=== PATIENT | male | born 1975 | race Caucasian/White ===

== ENCOUNTER → 2023-01-22 10:24 | Outpatient (BNVA) | payer OTHER, SELFPAY | PROVIDERS: Visit Provider Nurse Practitioner Family | DX: F07.81 Postconcussional syndrome (principal); F43.10 Post-traumatic stress disorder, unspecified; M54.2 Cervicalgia | CPT/HCPCS: 99202 ==

== ENCOUNTER 2023-05-07 13:00 | Outpatient (AMB) | payer OTHER, SELFPAY ==
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
[2023-05-07 13:03] VITALS: BP 160/98; PULSE 98; O2SAT 97; BMI 38.3
== END 2023-05-07 13:56 | disposition home or self-care (01) ==
PROVIDERS: Visit Provider Nurse Practitioner Family
DX: F43.10 Post-traumatic stress disorder, unspecified (principal); F07.81 Postconcussional syndrome; M54.2 Cervicalgia; G47.33 Obstructive sleep apnea (adult) (pediatric)
CPT/HCPCS: 99214

== ENCOUNTER → 2023-05-07 13:00 | Outpatient (BNVA) | payer OTHER, SELFPAY | PROVIDERS: Visit Provider Nurse Practitioner Family | DX: F07.81 Postconcussional syndrome (principal); F43.10 Post-traumatic stress disorder, unspecified; M54.2 Cervicalgia; G47.33 Obstructive sleep apnea (adult) (pediatric); Z99.89 Dependence on other enabling machines and devices | CPT/HCPCS: 99212 ==

== ENCOUNTER → 2023-08-21 11:41 | Outpatient (BNVA) | payer OTHER, SELFPAY | PROVIDERS: Visit Provider Nurse Practitioner Family ==

== ENCOUNTER → 2023-10-08 07:36 | Outpatient (BNVA) | payer OTHER, SELFPAY | PROVIDERS: Visit Provider Nurse Practitioner Family ==

== ENCOUNTER → 2023-12-24 07:36 | Outpatient (BNVA) | payer OTHER, SELFPAY | PROVIDERS: Visit Provider Nurse Practitioner Family ==

== ENCOUNTER 2023-12-24 07:54 | Outpatient (AMB) | payer OTHER, SELFPAY ==
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
== END 2023-12-24 16:21 | disposition home or self-care (01) ==
PROVIDERS: Visit Provider Nurse Practitioner Family
DX: F07.81 Postconcussional syndrome (principal); G44.309 Post-traumatic headache, unspecified, not intractable; M54.2 Cervicalgia; G47.33 Obstructive sleep apnea (adult) (pediatric); F43.10 Post-traumatic stress disorder, unspecified
CPT/HCPCS: 99214

== ENCOUNTER 2024-08-04 07:29 | Outpatient (AMB) | payer OTHER, SELFPAY ==
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
[2024-08-04 07:30] VITALS: BMI 38.3
--- OUTSIDE RECORDS SUMMARY | 2024-08-04 07:31 | XMS_ITS ---
[facility] Name [facility] Organization Unknown History of Medication Use Medication Directions Dispensed Refills Start Date End Date Status gabapentin (NEURONTIN) 600 MG tablet Take 1 tablet (600 mg total) by mouth 3 (three) times a day. 4 active clonazePAM (KlonoPIN) 0.5 MG tablet 4 active Emgality 120 MG/ML injection 4 active gabapentin (NEURONTIN) 300 MG capsule 4 active oxyCODONE (ROXICODONE) 5 MG immediate release tablet Take 1 tablet every 4 hours by oral route as needed. 4 active divalproex (DEPAKOTE) [address] 4 active divalproex er (DEPAKOTE ER) 500 MG 24 hr tablet TAKE 1 TABLET BY MOUTH EVERYDAY AT BEDTIME 4 [address] [facility] [address]etamin[address] Ex [address] 500 MG tablet 4 active gabapentin (NEURONTIN) 600 MG tablet 4 active ibuprofen (MOTRIN) 800 mg tablet 4 active Ubrelvy 100 MG tablet 4 active lisinopril (PRINIVIL,ZeSTRIL) 30 MG tablet Take 1 tablet (30 mg total) by mouth daily. 4 active cloNIDine (CATAPRES) 0.1 MG tablet TAKE 1/2 TABLET BY MOUTH TWICE A DAY NEEDED AGITATION 4 active hydrOXYzine HCl (ATARAX) 10 MG tablet TAKE 4 TABLETS (40 MG TOTAL) BY MOUTH NIGHTLY. 3 aborted bupivacaine preservative free (MARCAINE) 0.5 % injection 2 mL 3 completed ibuprofen (MOTRIN) 200 MG tablet Take 1 tablet (200 mg total) by mouth 4 times daily (every 6 hours) as needed for mild pain. 2 aborted lisinopril (PRINIVIL,ZeSTRIL) 20 MG tablet Take 1 tablet (20 mg total) by mouth daily. 2 active benzonatate (TESSALON) 200 MG capsule Take 1 capsule (200 mg total) by mouth 3 (three) times a day as needed for cough. 2 aborted fluticasone (VERAMYST) 27.5 MCG/SPRAY nasal spray 2 sprays into each nostril. 2 aborted prazosin (MINIPRESS) 2 MG capsule 3 active fluticasone (FloNASE) 50 mcg/spray nasal spray 1 spray into each nostril daily. 2 active traZODone (DESYREL) 50 MG tablet Take 1 tablet (50 mg total) by mouth nightly. 3 aborted hydrOXYzine HCl (ATARAX) 50 MG tablet TAKE 1 TABLET BY MOUTH EVERY DAY AT NIGHT 3 aborted risperiDONE (RisperDAL) 0.25 MG tablet Take 1 tablet (0.25 mg total) by mouth 2 (two) times a day. 3 active prazosin (MINIPRESS) 2 MG capsule 3 active fluticasone (FloNASE) 50 mcg/spray nasal spray 1 spray into each nostril daily. 2 active methylPREDNISolone acetate (DEPO-Medrol) 40 mg/mL injection 40 mg 3 completed butalbital-acetaminoph en-caffeine (FioriCET, ESGIC) 50-325-40 mg tablet TAKE 1 TABLET ORALLY EVERY 4 HOURS NEEDED FOR PAIN FOR UP TO 28 DAYS 2 aborted bupivacaine preservative free (MARCAINE) 0.5 % injection 2.5 mL 3 completed albuterol (PROVENTIL HFA; VENTOLIN HFA) 108 (90 Base) MCG/ACT inhaler Inhale 2 puffs 4 times daily (every 6 hours) as needed for wheezing. 2 aborted venlafaxine (EFFEXOR-XR) 37.5 MG 24 hr capsule Take 1 capsule (37.5 mg total) by mouth daily. 2 aborted lidocaine (XYLOCAINE) 2 % injection 2.5 mL 2.5 mL, Intramuscular, Once, On Nidia 02/19/23 at 1000, For 1 dose 3 completed hydrOXYzine HCl (ATARAX) 50 MG tablet Take 1 tablet (50 mg total) by mouth nightly. 3 aborted divalproex (DEPAKOTE) [address] Take 1 tablet (500 mg total) by mouth 2 (two) times a day. 3 active venlafaxine (EFFEXOR-XR) 150 MG 24 hr capsule TAKE 1 CAPSULE BY MOUTH DAILY FOR 360 DAYS. 3 active citalopram (CeleXA) 10 MG tablet Take 1 tablet (10 mg total) by mouth every morning. 4 active traZODone (DESYREL) 50 MG tablet TAKE 2 TABLETS BY MOUTH NIGHTLY 3 active hydrOXYzine HCl (ATARAX) 10 MG tablet TAKE 1 TABLET (10 MG TOTAL) BY MOUTH NIGHTLY. FOR 2-3 NIGHTS, THEN INCREASE TO 20MG AND CONTINUE 2 aborted amoxicillin-clavulanat e (AUGMENTIN) 875-125 MG per tablet Take 1 tablet by mouth 2 (two) times a day. 2 aborted hydrOXYzine HCl (ATARAX) 10 MG tablet 3 aborted cyclobenzaprine (FLEXERIL) 10 MG tablet cyclobenzaprine 10 mg tablet 2 active lidocaine (XYLOCAINE) 2 % injection 2 mL 2 mL, Intramuscular, Once, On Thu06/03/23 at 1430, For 1 dose 3 completed Problems Problem Status Onset Date Problem Type Date of Resolution Source Cervical radiculopathy active EncounterDiagnosisAct H[facility] Acute diverticulitis of intestine active 2023-01-08 ProblemAct [facility] Class 2 obesity active 2023-05-11 ProblemAct HH CCT Neuroforaminal stenosis of cervical spine active EncounterDiagnosisAct CCT Diverticulitis of colon with perforation active 2023-01-08 ProblemAct [facility]CT
--- OUTSIDE RECORDS SUMMARY | 2024-08-04 07:31 | XMS_ITS | Data Portability ---
Author Organization [facility] Address [address] [place] [address] Assessment Encounter Date Assessment Date Assessment LastModified by Organization Details LastModified Time 05/05/2018 05/05/2018 MRI of the lumbar spine scanned into DICOM demonstrates a L4-5 disc bulge leading to right sided lateral recess stenosis. Mr. De Guzman' right leg she is consistent with a right L5 radiculopathy is lateral recess narrowing at L4-5. As he has failed to improve with nonoperative care including injections and physical therapy, we discussed the option of a right L4-5 partial discectomy. The risks and benefits of the surgery were described in detail including the risk of bleeding, infection, numbness, weakness, continued pain and reherniation. I explained that she ever reherniation he may require additional surgery. I also explained that given that he has had pain for 2 years, he may continue to have nerve pain following surgery. We also discussed the typical course of recovery. He wishes to proceed with surgery and this will be scheduled for him. [email or web address] Not available 05/05/2018 16:11:09 06/30/2018 06/30/2018 Mr. De Guzman is improving. He will continue to advance his level activity and followup with me in 4 weeks. Given the very physical nature of his work, I do not recommend that he return until I have seen him in 4 weeks. Not available 06/30/2018 14:47:01 Plan of Treatment Reminders Order Date Submit Date Provider Last Modified By Organization Details Last Modified Time Details Appointments None recorded. Lab None recorded. Referral None recorded. Procedures None recorded. Surgeries lumbar discectomy (SURG) 2017 018 [email or web address] Not available 8 09:56:28 Imaging MRI, knee, w/o contrast 2018 019 [email or web address] [facility] ([facility]), [address], [place], [address], 9 10:27:21 Medication Orders None recorded. Patient TargetsNo targets recorded. Patient Instructions Encounter Date Encounter Id Patient Instructions Last Modified By Organization Details Last Modified Time 07/19/2018 [id number] Mr. De Guzman is recovering nicely from his discectomy. He has been referred for physical therapy. He would like to return to work. He has been return to work at light duty as of July 24. He will follow up in 8 weeks. [email or web address] Not available 07/21/2018 05:56:25 05/17/2019 [id number] He presents toda for 2 problems. He continues to report pain with running and sit ups in his lower back. He is status post right L4-L5 discectomy on 06/15/[address] Weinstein. He is unable to run more than 1/4 mile and cannot tolerate sit ups without severe pain. We obtained x-rays today which did not reveal any fracture or bony abnormalities. There are no signs of infection. He does not have any neurologic deficits. I suspect that this is mechanical in nature. I do not think he is a candidate to participate in the training program for his job. I recommended a work hardening program to work on getting back to running and sit ups. We will start this program and he will follow-up in 4 weeks. At that point we will update his work restrictions. In the meantime, he can continue participating in his other duties at work. He also reports a left knee injury that was a work-related injury. The work comp case was closed. The injury occurred 4 months ago. He did well with physical therapy and yufd-nld-ysdltij options. He felt something shift in his knee and his pain returned. We obtained x-rays today. There is no obvious osteoarthritis or fracture. He has an effusion and is tender over the lateral joint line. He has tried doing the exercises that he learned from therapy. He is not making any progress. At this point I would recommend an MRI for more information. He may have a lateral meniscus tear. Once we have the results we can discuss treatment options. He agrees with the plan. Not available 05/17/2019 18:19:33 Reason for Referral None Reported. Results Created Date Observation Date Name Description Value Unit Range Abnormal Flag Note LastModifiedBy Organization Detail LastModifiedTime 05/05/20 18 03/18/2018 MRI, lumba r spine , w/o contr ast No observ ation record ed. [email or web address] Not Available 07/2018 14:57:34 06/15/20 18 06/15/2018 XR, entir e spine , 1 view RESPON SIBLE INTERP RETER: Edin rouse M.D. 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 TECHNI QUE: Latera l fluoro spot view of the lower lumbar spine using the operat ing room C-arm COMPAR SYED: None FINDIN GS: There is a curved instru ment at the level of the pedicl e of L4. IMPRES JULIO: Instru ment at the level of L4. Dictat ed: 2017 1:02 PM Report ID: [id number] Report signed in tea leaf reader al system at 2017 13:02 Report ed By: Edin rouse M.D. (JULITO) Signed By: Edin rouse M.D. (JULITO) [email or web address] Radiology (Imaging) [address] [facility], [place], [address], 06/15/2018 13:54:36 06/14/20 19 05/17/2019 XR, knee, 3 view RESPON SIBLE INTERP RETER: Brandon slater M.D. EXAMIN ATION: XR KNEE 3 VW LEFT CLINIC AL INDICA TION: Left knee pain TECHNI QUE: Three views of the left knee. COMPAR SYED: None FINDIN GS: The bone as well minera lized. There is no eviden ce of destru ctive bone lesion s or fractu re. The medial and latera l compar tment of the left knee are preser marialuisa. The left patell ofemor al joint is normal . Standi ng view of the right knee demons trates preser marialuisa medial and latera l compar tments . There is no eviden ce of a joint effusi on. IMPRES JULIO: Normal left knee radiog raphs. Dictat ed: 2018 3:11 PM Report ID: [id number] Report signed in tea leaf reader al system at 019 15:11 Report ed By: Brandon slater M.D. (MARED ) Signed By: Brandon slater M.D. (MARED ) [email or web address] Radiology (Imaging) [address] [place], [address], 06/14/2019 10:30:51 06/14/20 19 05/17/2019 XR, foot, 3 or more view RESPON SIBLE INTERP RETER: Brandon slater M.D. EXAMIN ATION: XR FOOT 3+ VW LEFT CLINIC AL INDICA TION: Left foot pain TECHNI QUE: Three views of the left foot. COMPAR SYED: None FINDIN GS: Bone as well minera lized. There is no eviden ce of fractu re or destru ctive bone lesion s. No prolif erativ e or erosiv e arthro randy is seen. Dorsal osteop hytes are noted on the navicu lar bone. There is a tiny calcan eal spur at the origin of the planta r fascia . Dystro phic calcif icatio n is seen within the distal Achill is tendon at its insert ion on the oven attendant ior calcan eus. IMPRES JULIO: No fractu re or destru ctive bone lesion s left foot. Dorsal osteop hytes on the navicu lar bone. Calcan eal spur. Dystro phic calcif icatio n in the distal left Achill is tendon likely relate d to old trauma . Dictat ed: 2018 3:13 PM Report ID: [id number] Report signed in tea leaf reader al system at 019 15:13 Report ed By: Brandon slater M.D. (MARED ) Signed By: Brandon slater M.D. ([facility] ) [email or web address] Radiology (Imaging) [address] [place], [address], 06/14/2019 10:30:51 06/14/20 19 05/17/2019 XR, thora colum bar spine , 2 or 3 view RESPON ALISON ALVES RETER: Brandon slater M.D. EXAMIN ATION: XR LUMBAR SPINE 2-3 VW AP LAT CLINIC AL INDICA TION: 44-yea r-old male with lower back pain. Histor y of prior surger y TECHNI QUE: Two views of the lumbar spine. COMPAR SYED: Prior study dated 2017 FINDIN GS: The lumbar verteb ral bodies demons trate normal alignm ent. There is no destru ctive bone lesion s or acute fractu re. Mild degene rative facet change s are noted at L5-S1. The interv ertebr al disc spaces are preser marialuisa. Parave rtebra l soft tissue s are normal . IMPRES JULIO: Mild degene rative facet diseas e L5-S1. No acute fractu re. Preser marialuisa interv ertebr al disc spaces . Dictat ed: 2018 3:14 PM Report ID: [id number] Report signed in tea leaf reader al system at 019 15:14 Report ed By: Brandon slater M.D. (MAR ) Signed By: Brandon slater M.D. ([facility] ) Radiology (Imaging) [address] [facility], [place], [address], 06/14/2019 10:30:52 06/16/20 19 06/15/2019 MRI, knee, w/o contr ast [facility] [place] [facility] Access ion Number : [id number] Patien t Name : Florentino De Guzman Record Number : [id number] Date of : 1974 Date of Exam : 2018 Referr ing Physic verenice : LEANA HAM rts [address] [facility] [address] [place] [address] Exam : MR - KNEE (C-) CPT 43506 - LEFT Room Descri ption : Heard Siem Espr 2 1.5 Techni que : Ax PDFsat , Sag PD, Sag T2 FS,Cor PD FS, Cor T1 Final Report HISTOR Y Latera l menisc al tear. Latera l pain for 4 months , ever since injury . FINDIN GS MRI left knee. Small effusi on. Very tiny and slende r poplit eal cyst. EXTENS OR MECHAN ISM No signif icant extens or tendon pathol ogy. Suspec t border line latera l patell ar sublux ation. Medial patell ar retina culum and medial patell ofemor al ligame nt: Intact . Latera l patell ar retina culum: Intact . Small medial patell ar plica. ARTICU LAR CARTIL AGE AND BONES Promin ent fissur e is seen in the medial aspect of the latera l patell ar articu lar cartil age with additi onal areas of chondr al irregu larity , fissur ing, and edema seen elsewh ere in the patell ar cartil age. Mild fissur ing of the latera l trochl ear articu lar cartil age also noted. Mild chondr al edema is noted involv ing the weight bearin g medial femora l condyl e articu lar cartil age. Tiny 7 mm hetero geneou sly T2 hyperi ntense focus with puncta te foci of dimini shed T2 signal (serie s 3 image 9, series 7 image 14) is seen in the randell medial distal femora l metaph ysis. This likely repres ents a tiny enchon droma given its appear ance. No eviden ce for bone marrow edema or other marrow pathol ogy. CRUCIA TE LIGAME NTS PCL: Intact . ACL: Intact . COLLAT ERAL LIGAME NTS MCL: Intact . LCL: Intact . POPLIT EUS TENDON Intact . Poplit eofibu lar ligame nt: Intact . Superi or and inferi or fascic les oven attendant ior horn latera l menisc us: Intact . PROXIM AL TIBIOF IBULAR JOINT Some fluid noted in the proxim al tibiof ibular joint recess es althou gh a small multil obulat ed gangli on cyst may be presen t as well. MENISC I MEDIAL : Myxoid degene ration . No defini te eviden ce for tear. LATERA L: Intact . IMPRES JULIO * Somewh at promin ent patell ofemor al chondr omalac ia. Mild chondr al edema/ chondr omalac ia medial femora l condyl e articu lar cartil age. * Presum able 7 mm enchon droma in the distal femur. Recomm end radiog raphic correl ation. * Suspec t border line latera l patell ar sublux ation. * No eviden ce for menisc al or ligame ntous injury . * Small multil obulat ed gangli on cyst versus joint recess fluid noted adjace nt to the proxim al tibiof ibular joint. * Tiny poplit eal cyst. ----- PHYSIC VERENICE : LIN CASAS MD (Signa ture on file) [address] [facility] ([facility]) [address] [place], [address], 06/18/2019 09:55:51 06/16/20 19 06/15/2019 MRI, knee, w/o contr ast No observ ation record ed. [email or web address] [place] [address] [facility] [address] [place], [address], 06/18/2019 09:55:51 Result Notes None recorded. Problems No Known Problems Procedures Surgical History Date Name Laterality Status Provider Name and Address Organization Details Recorded Time 8 Back Surgery completed Xiomara Jeanette [facility] 06/30/2018 14:25:[address] [facility] Lumbar Epidural Injection completed CRYS COOPER MD [address] [place] [address],[address], [place], [address], [facility] 05/24/2018 14:04:46 Tonsillectomy/ Adenoidectomy completed Latricia Walker [facility] 05/05/2018 15:46:59 Imaging Results Imaging Date Name Status LastModified by Organization Details LastModified Time 03/18/2018 MRI, lumbar spine, w/o contrast completed [email or web address] Information not available 05/05/2018 14:57:34 06/15/2018 XR, entire spine, 1 view completed [email or web address] Radiology (Imaging) [address] [place], [address], 06/15/2018 13:54:36 05/17/2019 XR, knee, 3 view completed [address] Radiology (Imaging) [address] [place] [address], [address], 06/14/2019 10:30:51 05/17/2019 XR, foot, 3 or more view completed [address] Radiology (Imaging) [address] [place] [address], [address], 06/14/2019 10:30:51 05/17/2019 XR, thoracolumbar spine, 2 or 3 view completed [address] Radiology (Imaging) [address] [place] [address], [address], 06/14/2019 10:30:52 06/15/2019 MRI, knee, w/o contrast completed [address] [facility] [address] [place], [address], 06/18/2019 09:55:51 06/15/2019 MRI, knee, w/o contrast completed [address] [facility] [address] [place] [address], [address], 06/18/2019 09:55:51 Procedure Notes None recorded. Medical Equipment None Reported. Allergies No known drug allergies Medications Name Sig Start Date Stop Date Status Note LastModified by Organization Details LastModified Time cyclobenzapri ne 10 mg tablet active Not Available Not Available Not Available neomycin-poly myxin-hydroco rt 3.5 mg/mL-10,000 unit/mL-1 % ear solution active Not Available Not Available Not Available prednisone 10 mg tablet 05/05 completed Not Available Not Available Not Available ibuprofen 800 mg tablet active Not Available Not Available No t Available benzonatate 200 mg capsule 05/17 completed Not Available Not Available Not Available ranitidine 300 mg tablet 05/05 completed Not Available Not Available Not Available gabapentin 300 mg capsule active Not Available Not Available Not Available amoxicillin 875 mg-potassium clavulanate 125 mg tablet 05/17 completed Not Available Not Available Not Available oxycodone 5 mg tablet Take 1 tablet every 4 hours by oral route as needed. active Not Available Not Available No t Available escitalopram 10 mg tablet 05/05 completed Not Available Not Available Not Available Flonase active Not Available Not Avail able Not Available Tylenol active Not Available Not Avail able Not Available Cristina active Not Available Not Avail able Not Available ProAir HFA 90 mcg/actuation aerosol inhaler 05/17 completed Not Available Not Available Not Available Vitals Date Recorded Body height Body mass index (BMI) Body weight Body temperature Provider Name and Address Organization Details Last Updated DateTime 05/05/2018 185.42 cm 36.3 kg/m2 959716.9 g 97.8 [degF] Latricia Walker [facility] 05/05/2018 15:45:36 Date Recorded Body height Body mass index (BMI) Body weight Body temperature Provider Name and Address Organization Details Last Updated DateTime 06/30/2018 185.42 cm 36.3 kg/m2 576228.9 g 99.2 [degF] Xiomara Reid [facility] 06/30/2018 14:25:17 Date Recorded Body height Body mass index (BMI) Body weight Body temperature Provider Name and Address Organization Details Last Updated DateTime 07/19/2018 185.42 cm 36.3 kg/m2 172094.9 g 97.7 [degF] Obie Vasquez [facility] 07/19/2018 13:16:32 Date Recorded Body height Body mass index (BMI) Body weight Provider Name and Address Organization Details Last Updated DateTime 05/17/2019 185.42 cm 36.3 kg/m2 474027.9 g Nicky Patel [facility] 05/17/2019 13:44:39 Date Recorded Body temperature Provider Name a nd Address Organization Details Last Updated DateTime 05/17/2019 99.1 [degF] Yarely Chand [facility] 05/17/2019 14:04:55 Social History Question Answer Notes LastModified by Organizat ion Details LastModified Time Tobacco Smoking Status Never Smoker Latricia Walker [facility] 05/05/2018 15:46:48 What Is Your Level Of Alcohol Consumption? Moderate [email or web address] Information not available 05/05/2018 What Was The Date Of Your Most Recent Tobacco Screening? 07/19/2018 Information n ot available 03/16/2019 Sex: Unknown Functional Status None recorded. Mental Status None recorded. Family History Relationship Description Onset Age of this Age Resolved Age Notes LastModified by Organization Details LastModified Time Father No current problems or disability Not available 05/05 15:46:43 Mother No current problems or disability Not available 05/05 15:46:43 Medical History Condition Response Coronary Artery Disease N Dyslipidemia N Gout N Artificial Joints N Thyroid Problems N Lung Disease N Depression N Pacemaker N Anemia N Back Pain N Hearing Impairment N Anesthesia Complications N Heart Attack ([place]) N Headaches/Migraines N Deep Vein Thrombosis N Anxiety Disorder N Diabetes N Bleeding Disorder N Arthritis N Seizures/Epilepsy N Cardiac Stent N Blood Clot N Tuberculosis N AIDS/HIV N Inflammatory Bowel Disease N Acid Reflux (GERD) N Cancer N Stroke N Substance Abuse N Peripheral Vascular Disease N Asthma/COPD N Wears Glasses/Contacts N Hepatitis N Heart Disease N Organ Transplant N Rheumatoid Arthritis N Pulmonary Embolism N Fibromyalgia N Hypertension N Stomach Ulcer N Osteoporosis N Kidney Disease N Past Encounters Encounter ID Performer Location Encounter Start Date Encounter Closed Date Diagnosis/Indication Diagnosis SNOMED-CT Code Diagnosis ICD10 Code [id number] ANNE WEINSTEIN MD [address], [place] [address] [place] [phone] 05/05/2018 14:43:23 05/05/2018 16:43:29 Herniation of lumbar intervertebral disc with sciatica 0044870754 02858 M51.16 [id number] CRYS COOPER MD [address],[place] [address] [place] [address] 05/24/2018 13:32:31 05/24/2018 14:24:55 Lumbar radiculopathy [id number] M54.16 [id number] ANNE WEINSTEIN MD [address],[place] [address] [place] [phone] 06/30/2018 13:43:33 06/30/2018 14:47:26 [id number] YANELY LANGLEY [address],[place] [address] [place] [address] 07/19/2018 13:11:17 07/22/2018 09:27:56 Aftercare [id number] Z47.89 [id number] YANELY FONTAINE [place] [address] [facility],[place] [address] [place] [address] 05/17/2019 13:32:08 05/19/2019 14:33:09 Postoperative care 922878728 Z48.89 Tear of la teral meniscus of knee 942514657 S83.281A Health Concerns Section Related Observation LastModified by Organization Detai ls LastModified Time None Recorded Concern Status LastModified by Organization Details LastModified Time None Recorded Advance Directives Directive None Recorded Payers Encounter Date Sequence Insurance Name Policy Number Policy [place] Covered Member ID [place] Member ID Guarantor Name 05/05/2018 1 [employer] (PPO) [id number] Florentino Marina De Guzman [id number] Florentino Gege 05/24/2018 1 [employer] ([employer]) [id number] Florentino Gray Gege [id number] Florentino Gege 06/30/2018 [facility] [id number] Florentino Marina De Guzman [id number] Florentino Gege 07/19/2018 1 [facility] - [facility]ENIOR [facility] (PPO) [id number] Florentino Gray Gege [id number] Florentino Christiansonars 05/17/2019 1 [facility] - [facility]ENIOR [facility] ([facility]) [id number] Florentino Gray Gege [id number] Florentino De Guzman Notes Date Note Type Note Provider Name and Address Organization Details Recorded Time 05/05/2018 text/html Two years ago he developed severe right-sided low back pain and leg pain after lifting his daughter. This initially lasted approximately 3 weeks. He then developed worsening lateral hip and thigh pain. Since that time the pain has been severe. It is made worse with standing and walking. The pain can radiate down to the ankle. His leg can feel a weak at times. He has had lumbar injections as well as physical therapy which did not provide him with significant relief. He is currently on light duty. He works at the [employer]. He had transient left leg pain but this has resolved. ANNE WEINSTEIN MD [address] [place] [address],[address], [place], [address], [facility] 05/05/2018 16:49:42 06/30/2018 text/html He is now 2 week s out from his surgery. He reports decreasing back and leg pain. He's had no fevers or chills. ANNE WEINSTEIN MD [address] [facility],[address], [place], [address], [facility] 06/30/2018 14:47:09 07/19/2018 text/html Mr. De Guzman is 6 weeks s/p microdiscectomy at L4-5. Overall he is doing well. He has minor lower back pain with movement. He states the leg is tight with a SLR. His hip pain has resolved. He does not have weakness or paresthesias. He can now stand and walk for prolonged periods of time, YANELY LANGLEY [address] [facility],[address], [place], [address], [facility] 07/21/2018 05:56:47 05/17/2019 text/html Back PainReporte d bypatient.Notes:Mr. De Guzman is s/p microdiscectomy at L4-5 on 06/15/18. Overall he is doing well. He has no pain with walking. He does report significant lower back pain and radiating pain down the right lower extremity that occurs with situps and running. He does not have weakness or paresthesias. He can now stand and walk for prolonged periods of time. He has completed physical therapy and has been training for a fitness test. He states that he can only run about one quarter of a mile on a track or treadmill until he has significant pain. He can not run on asphalt surfaces. He denies neurologic symptoms. He denies bowel or bladder dysfunction. He denies any new trauma.Knee PainReported bypatient.Notes:Patie nt secondary complaint of left knee pain. This was previously a work-related injury. The injury occurred 4 months ago. He was evaluated at a hospital in [place] and diagnosed with a sprain. He was treated with ice, rest, anti-inflammatories, and physical therapy. He states that he did recover and return to work. However, recently his pain returned. His pain is over the lateral and posterior aspect of his knee. He reports clicking and buckling. He denies neurologic symptoms. He has tried resuming his exercises but they are too painful. He is here today to discuss further options. YANELY FONTAINE [address] [facility],[address], [place], [address], [facility] 05/17/2019 18:20:18
== END 2024-08-04 10:24 | disposition home or self-care (01) ==
PROVIDERS: Visit Provider Nurse Practitioner Family
DX: F07.81 Postconcussional syndrome (principal); G44.329 Chronic post-traumatic headache, not intractable; M54.2 Cervicalgia; G47.33 Obstructive sleep apnea (adult) (pediatric); F43.10 Post-traumatic stress disorder, unspecified
CPT/HCPCS: 99214

== ENCOUNTER → 2024-08-04 07:29 | Outpatient (BNVA) | payer OTHER, SELFPAY | PROVIDERS: Visit Provider Nurse Practitioner Family ==

== ENCOUNTER 2024-10-27 07:34 | Outpatient (AMB) | payer OTHER, SELFPAY ==
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
--- OUTSIDE RECORDS SUMMARY | 2024-10-27 07:38 | XMS_ITS | Encounter Summary ---
Author Organization [facility] Address [address] [place] [address] Care Team Providers Care Orchardist Name Role Phone Boni Ladd Primary Care Provider [phone] Reason for Visit * Reason Comments Other Pre procedure cleara nce Encounter Details Date Type Department Care Team (Late st Contact Info) Description 10/11/2024 Telephone [id number] [address] [phone] Saurabh Shar Leandro, DO [address] [address] Other (Pre procedure clearance ) Social History Tobacco Use Types Packs/Day Years Used Date Smoking Tobacco: Never Smokeless Tobacco: Never Alcohol Use Standard Drinks/Week Comments Not Currently 0 (1 standard drink = 0.6 oz pur e alcohol) Sex and Gender Information Value Date Recorded Sex Assigned at Male 12/24/2022 9:27 AM EDT Gender Identity Male 12/24/2022 9:27 AM EDT Sexual Orientation Heterosexual (straight) 12/24 9:27 AM EDT documented as of this encounter Miscellaneous Notes * Telephone Encounter - Nino Mahoney MA - 10/12/2024 1:13 PM EST Encounter closed. documented in this encounter Plan of Treatment Upcoming Encounters Date Type Department Care Team (Late st Contact Info) Description 11/10/2024 10:45 AM EDT Office Visit [id number] [address] [phone] Renae Zambrano PA-C [address] [address] documented as of this encounter Visit Diagnoses Not on filedocumented in this encounter Care Teams Orchardist Relationship Specialty Start Date End Date Boni Ladd PA [address] [place] [phone] PCP - General 06/20/22 documented as of this encounter
--- OUTSIDE RECORDS SUMMARY | 2024-10-27 07:38 | XMS_ITS | Encounter Summary ---
Author Organization [facility] Address [address] [place] [address] Care Team Providers Care Tumor Registrar Name Role Phone Boni Ladd Primary Care Provider Encounter Details Date Type Department Care Team (Late st Contact Info) Description 09/28/2024 Telephone [facility] Neurology [address] [phone] Rhona Alonzo MD [address] [place] [phone] Social History Tobacco Use Types Packs/Day Years [...] encounter Miscellaneous Notes * Telephone Encounter - Rhona Alonzo MD - 09/28/2024 10:20 AM EST I returned the patient's call. The FELICITA has worn off and the increase in pain is triggering his mental health issues with increased PTSD and anxiety. He is waiting to hear back from Dr. Wiley's office if they can continue to treathim. Otherwise he meets with 2 talk therapists 2x/week and psychiatrist as well for medications. I advised him to let me know if Dr. Wiley can't continue to treat him for pain management then I'll refer him to Dr. David in [place]. He'll let me know by Thursday about pain management. All questionswere answered. Rhona Alonzo MD documented in this encounter Plan of Treatment Upcoming Encounters Date Type Department Care Team (Late st Contact Info) Description 11/10/2024 10:45 AM EDT Office Visit [id number] [address] [phone] Renae Zambrano PA-C [address] [address] documented as of this encounter Visit Diagnoses Not on filedocumented in this encounter Care Teams Tumor Registrar Relationship Specialty Start Date End Date Boni Ladd PA [address] [place] [address] PCP - General 06/20/22 documented as of this encounter
--- OUTSIDE RECORDS SUMMARY | 2024-10-27 07:38 | XMS_ITS | Encounter Summary ---
Author Organization [facility] Address [address] [place] [address] Care Team Providers Care Security Installation Sales Technician Name Role Phone Boni Ladd Primary Care Provider Encounter Details Date Type Department Care Team (Late st Contact Info) Description 10/06/2024 Scanned Document [facility] Neurology Sports [place] [address] [phone] Rhona Alonzo MD [address] [address] Social History Tobacco Use Types Packs/Day Years [...] AM EDT documented as of this encounter Plan of Treatment Upcoming Encounters Date Type Department Care Team (Late st Contact Info) Description 11/10/2024 10:45 AM EDT Office Visit [id number] [address] [phone] Renae Zambrano PA-C [address] [address] documented as of this encounter Visit Diagnoses Not on filedocumented in this encounter Care Teams Security Installation Sales Technician Relationship Specialty Start Date End Date Boni Ladd PA [address] [place] [id number] PCP - General 06/20/22 documented as of this encounter
--- OUTSIDE RECORDS SUMMARY | 2024-10-27 07:38 | XMS_ITS | Patient Health Record ---
Author Organization Nadeen Peter MD Address [address] [phone] REASON FOR REFERRAL No Information PLAN OF TREATMENT No Information
--- OUTSIDE RECORDS SUMMARY | 2024-10-27 07:38 | XMS_ITS | Encounter Summary ---
Author Organization [facility] Address [address] [place] [address] Care Team Providers Care Block Machine Operator Name Role Phone Boni Ladd Primary Care Provider [phone] Encounter Details Date Type Department Care Team (Late st Contact Info) Description 10/11/2024 Scanned Document [facility] Neurology Sports [place] [address] [phone] Rhona Alonzo MD [address] [address] Social History Tobacco Use Types Packs/Day Years [...] Visit MG PAIN MGMT [id number] [address] [phone] Renae Zambrano PA-C [address] [address] documented as of this encounter Visit Diagnoses Not on filedocumented in this encounter Care Teams Block Machine Operator Relationship Specialty Start Date End Date Boni Ladd PA [address] [place] [id number] PCP - General 06/20/22 documented as of this encounter
--- OUTSIDE RECORDS SUMMARY | 2024-10-27 07:38 | XMS_ITS | Encounter Summary ---
Author Organization [facility] Address [address] [place] [address] Care Team Providers Care Roofing Contractor Name Role Phone Boni Ladd Primary Care Provider [phone] Encounter Details Date Type Department Care Team (Late st Contact Info) Description 10/06/2024 Scanned Document [facility] Neurology Sports [place] [address] [phone] Rhona Alonzo MD [address] [address] Social History Tobacco Use Types Packs/Day Years [...] Office Visit MG PAIN MGMT [id number] [address] [phone] Renae Zambrano PA-C [address] [address] documented as of this encounter Visit Diagnoses Not on filedocumented in this encounter Care Teams Roofing Contractor Relationship Specialty Start Date End Date Boni Ladd PA [address] [place] [phone] PCP - General 06/20/22 documented as of this encounter
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
--- OUTSIDE RECORDS SUMMARY | 2024-10-27 07:38 | XMS_ITS | Encounter Summary ---
Author Organization [facility] Address [address] [place] [address] Care Team Providers Care Tuyere Fitter Name Role Phone Boni Ladd Primary Care Provider Encounter Details Date Type Department Care Team (Late st Contact Info) Description 10/06/2024 Scanned Document [facility] Neurology [place] [address] [phone] Rhona Alonzo MD [address] [address] Social History Tobacco Use Types Packs/Day Years [...] Office Visit MG PAIN MGMT [id number] [address] [phone] Renae Zambrano PA-C [address] [address] documented as of this encounter Visit Diagnoses Not on filedocumented in this encounter Care Teams Tuyere Fitter Relationship Specialty Start Date End Date Boni Ladd PA [address] [place] [address] PCP - General 06/20/22 documented as of this encounter
--- OUTSIDE RECORDS SUMMARY | 2024-10-27 07:38 | XMS_ITS | Encounter Summary ---
Author Organization [facility] Address [address] [place] [address] Care Team Providers Care Laundry Operator Finishing Name Role Phone Boni Ladd Primary Care Provider Encounter Details Date Type Department Care Team (Late st Contact Info) Description 10/11/2024 Scanned Document [facility] Neurology Sports [place] [address] [phone] Rhona Alonzo MD [address] [address] Social History Tobacco Use Types Packs/Day Years [...] Office Visit MG PAIN MGMT [id number] [address] [phone] Renae Zambrano PA-C [address] [address] documented as of this encounter Visit Diagnoses Not on filedocumented in this encounter Care Teams Laundry Operator Finishing Relationship Specialty Start Date End Date Boni Ladd PA [address] [place] [address] PCP - General 06/20/22 documented as of this encounter
--- OUTSIDE RECORDS SUMMARY | 2024-10-27 07:38 | XMS_ITS | Encounter Summary ---
Author Organization [facility] Address [address] [place] [address] Care Team Providers Care Adolescent Counselor Name Role Phone Boni Ladd Primary Care Provider Encounter Details Date Type Department Care Team (Latest Contact Info) Description 10/13/2024 Travel Social History Tobacco Use Types Packs/Day Years [...] Visit MG PAIN MGMT [id number] [address] [phone] Renae Zambrano PA-C [address] [address] documented as of this encounter Visit Diagnoses Not on filedocumented in this encounter Care Teams Adolescent Counselor Relationship Specialty Start Date End Date Boni Ladd PA [address] [place] [address] PCP - General 06/20/22 documented as of this encounter
--- OUTSIDE RECORDS SUMMARY | 2024-10-27 07:39 | XMS_ITS | Clinical Summary ---
Author Organization [facility] Address [address] [place] [address] Care Team Providers Care Measurement Analyst Name Role Phone Boni Ladd Primary Care Provider [phone] Allergies No known active allergies Medications Medication Sig Dispensed Refills Start Date End Date Status fluticasone (FloNASE) 50 mcg/spray nasal spray 1 spray into each nostril daily. Active cyclobenzaprine (FLEXERIL) 10 MG tablet cyclobenzaprine 10 mg tablet Active venlafaxine (EFFEXOR-XR) 150 MG 24 hr capsule TAKE 1 CAPSULE BY MOUTH DAILY FOR 360 DAYS. 11/27/2022 Active risperiDONE (RisperDAL) 0.25 MG tablet Take 1 tablet (0.25 mg total) by mouth 2 (two) times a day. Active traZODone (DESYREL) 50 MG tabletIndications: Difficulty sleeping TAKE 2 TABLETS BY MOUTH NIGHTLY 180 tablet 1 03/05/2023 Active prazosin (MINIPRESS) 2 MG capsule 03/24/2023 Active citalopram (CeleXA) 10 MG tablet Take 1 tablet (10 mg total) by mouth every morning. 10/02/2023 Active Ubrelvy 100 MG tablet 11/18/2023 Active lisinopril (PRINIVIL,ZeSTRIL) 30 MG tablet Take 1 tablet (30 mg total) by mouth daily. 11/18/2023 Active ibuprofen (MOTRIN) 800 mg tablet Active gabapentin (NEURONTIN) 600 MG tablet Take 1 tablet (600 mg total) by mouth 3 (three) times a day. 12/11/2023 Active cloNIDine (CATAPRES) 0.1 MG tablet TAKE 1/2 TABLET BY MOUTH TWICE A DAY NEEDED AGITATION 09/30/2023 Active [facility]aminophen [facility] 500 MG tablet 09/17/2023 Active divalproex (DEPAKOTE) 500 MG tablet 12/27/2023 Active gabapentin (NEURONTIN) 300 MG capsule Active Emgality 120 MG/ML injection 12/29/2023 Active oxyCODONE (ROXICODONE) 5 MG immediate release tablet Take 1 tablet every 4 hours by oral route as needed. Active clonazePAM (KlonoPIN) 0.5 MG tablet 01/25/2024 Active Hospital, Clinic, or Other Facility Administered Medication Ordered Dose Route Frequency Start Date End Date Status methylPREDNISolone acetate (DEPO-Medrol) 80 mg/mL injection 80 mgIndications:Cervical radiculopathy,Cervical spinal stenosis,Cervicalgia 80 mg IX Once 10/13/2024 10/13/19 Ended Active Problems Problem Noted Date Diagnosed Date Class 2 obesity 05/11/2023 05/11/2023 Acute diverticulitis of intestine 01/08/2023 05/11/2023 Diverticulitis of colon with perforation 023 05/11/2023 Encounters Date Type Department Care Team Description 10/13/2024 1:30 PM EST Procedure visit MG PAIN MGMT [id number] [address] [phone] Shar Wiley, Cervical radiculopathy (Primary Dx); Cervical spinal stenosis; Cervicalgia 10/13/2024 Travel 10/11/2024 Telephone MG PAIN MGMT [id number] [address] [phone] Shar Wiley, Other (Pre procedure clearance ) 10/11/2024 Scanned Document [facility] Neurology [address] [phone] Rhona Alonzo MD 10/11/2024 Scanned Document [facility] Neurology [address] [phone] Rhona Alonzo MD 10/06/2024 Scanned Document [facility] Neurology [address] [place] [address] Rhona Alonzo MD 10/06/2024 Scanned Document [facility] Neurology [address] [place] [address], [place] [address] Rhona Alonzo MD 10/06/2024 Scanned Document [facility] Neurology [address] [place] [address], [place] [address] Rhona Alonzo MD 09/28/2024 Telephone [facility] Neurology [address] [place] [address], [place] [address] Rhona Alonzo MD from Last 3 Months Family History Medical History Relation Name Comments Other Father agent orange Hypertension Mother Cancer Paternal Grandmother Relation Name Status Comments Father Mother Paternal Grandmother Social History Tobacco Use Types Packs/Day Years Used Date Smoking Tobacco: Never Smokeless Tobacco: Never Alcohol Use Standard Drinks/Week Comments Not Currently 0 (1 standard drink = 0.6 oz pur e alcohol) Sex and Gender Information Value Date Recorded Sex Assigned at Male 12/24/2022 9:27 AM EDT Gender Identity Male 12/24/2022 9:27 AM EDT Sexual Orientation Heterosexual (straight) 12/24 9:27 AM EDT Last Filed Vital Signs Vital Sign Reading Time Taken Comments Blood Pressure 142/93 10/13/2024 1:46 PM EST Pulse 100 10/13/2024 1:46 PM EST Temperature 36.9 ??C (98.5 ??F) 10/13/2024 1:18 PM ES T Respiratory Rate 18 05/06/2024 11:40 AM EDT Oxygen Saturation 97% 10/13/2024 1:46 PM EST Inhaled Oxygen Concentration - - Weight 127 kg (280 lb) 05/06/2024 11:07 AM EDT Height 185.4 cm (6' 1 ) 05/06/2024 11:07 AM EDT Body Mass Index 36.94 05/06/2024 11:07 AM EDT Plan of Treatment Upcoming Encounters Date Type Department Care Team (Late st Contact Info) Description 11/10/2024 10:45 AM EDT Office Visit MG PAIN MGMT [id number] [address] [place] [address] Renae Zambrano PA-C [address] [place] [address] Health Maintenance Due Date Last Done Comments Hepatitis C Virus Screening 1977 HIV Screening 1990 DTaP/Tdap/Td Vaccines (1 - Tdap) 01/02/1996 Hepatitis B Vaccines (1 of 3 - 19+ 3-dose series) 01/02/1996 Colonoscopy 2022 Influenza Vaccine 03/24/2024 COVID-19 Vaccine (1 - 2023-2 5 season) 2024 Pneumococcal Vaccine: Pediat savannah (0-5 Years) and At-Risk Patients (6 to 49 Years) Aged Out No longer eligible b ased on patient's age to complete this topic Procedures Procedure Name Priority Date/Time Associated Diagnosis Comments CERVICAL EPIDURAL Routine 10/13/2024 1:4 1 PM EST Cervical radiculopathy from Last 3 Months Results * CERVICAL EPIDURAL (10/13/2024 1:41 PM [...] Shar Wiley DO AMB ORDERABLE PERFOR LISA from Last 3 Months Advance Directives Documents on File Type Date Recorded Patient Community Health Education Coordinator Expl anation Advance Directive-Scan 04/02/2023 Medic al necessity form Care Teams Measurement Analyst Relationship Specialty Start Date End Date Boni Ladd PA [address] [place] [address] PCP - General 06/20/22
--- OUTSIDE RECORDS SUMMARY | 2024-10-27 07:39 | XMS_ITS | Encounter Summary ---
Author Organization [facility] Address [address] [place] [address] Care Team Providers Care Coal Unloader Name Role Phone Boni Ladd Primary Care Provider [phone] Reason for Visit * Reason Comments Medication Refill Encounter Details Date Type Department Care Team (Late Contact Info) Description 03/18/2023 Refill [facility] Neurology [address] [phone] Rhona Alonzo MD [address] [place] [phone] Difficulty sleeping Social History Tobacco Use Types Packs/Day Years Used Date Smoking Tobacco: Never Smokeless Tobacco: Never Alcohol Use Standard Drinks/Week Comments Not Currently 0 (1 standard drink = 0.6 oz pur e alcohol) Sex and Gender Information Value Date Recorded Sex Assigned at Male 12/24/2022 9:27 AM EDT Gender Identity Male 12/24/2022 9:27 AM EDT Sexual Orientation Heterosexual (straight) 12/24 9:27 AM EDT COVID-19 Exposure Response Date Recorded In the last 10 days, have yo u been in contact with someone who was confirmed or suspected to have Coronavirus/COVID-19? No / Unsure 02/19/2023 8:58 AM EDT documented as of this encounter Plan of Treatment Upcoming Encounters Date Type Department Care Team (Late Contact Info) Description 11/10/2024 10:45 AM EDT Office Visit MG PAIN MGMT [id number] 65 [facility] [address] [place] [address] Renae Zambrano PA-C 65 [facility] [address] [place] [address] documented as of this encounter Visit Diagnoses Diagnosis Difficulty sleeping Unspecified sleep disturbance documented in this encounter Care Teams Coal Unloader Relationship Specialty Start Date End Date Boni Ladd PA [address] [place] [address] PCP - General 06/20/22 documented as of this encounter
--- OUTSIDE RECORDS SUMMARY | 2024-10-27 07:39 | XMS_ITS | Encounter Summary ---
Author Organization [facility] Address [address] [place] [address] Care Team Providers Care Personnel Research Scientist Name Role Phone Pcp, No Primary Care Provider Boni Matias Primary Care Provider Encounter Details Date Type Department Care Team (Latest Contact Info) Description 09/03/2020 Lab Requisition [facility] [address] Through [address] [place] [address] [address] [place] [address] Boni Herrera PA-C [address] [place] [address] Encounter for laboratory testing for COVID-19 virus Social History Tobacco Use Types Packs/Day Years Used Date Smoking Tobacco: Never Smokeless Tobacco: Never Sex and Gender Information Value Date Recorded Sex Assigned at Male 12/24/2022 9:27 AM EDT Gender Identity Male 12/24/2022 9:27 AM EDT Sexual Orientation Heterosexual (straight) 12/24 9:27 AM EDT COVID-19 Exposure Response Date Recorded In the last month, have you been in contact with someone who was confirmed or suspected to have Coronavirus / COVID-19? Yes 09/03/2020 11:58 AM EST documented as of this encounter Plan of Treatment Upcoming Encounters Date Type Department Care Team (Late st Contact Info) Description 11/10/2024 10:45 AM EDT Office Visit MG PAIN [facility]MT [id number] 65 [facility] [address] [place] [phone] Renae Zambrano PA-C 65 [facility] [address] [place] [address] documented as of this encounter Procedures Procedure Name Priority Date/Time Associated Diagnosis Comments COVID-19 RT-PCR ([facility]) Routine 09/03/2020 12:13 PM EST Encounter for laboratory testing for COVID-19 virus [ICD-10-CM] documented in this encounter Results * COVID-19 RT-PCR ([facility]) (09/03/2020 12:13 PM EST) COVID-19 RT-PCR SARS-COV-2 NOT DETECTED Not Detected 09/04/2020 11:33 AM EST [facility] Comment: ADDITIONAL INFORMATION [facility] COVID-19 RT-PCR Assay is Real-Time Reverse Tank Car Mechanic Polymerase Chain Reaction (executive office manager-PCR) for the in vitro qualitative detection of three SARS-Cov-2 target sequences unique to the coronavirus disease 2019 (COVID-19). This is an Emergency Use Authorization (EUA) in vitro diagnostic (IVD) test that has been modified to include the Smart Destinations automated liquid handler. Its analytical performance characteristics have been determined by the doula and verified by [facility] in a manner consistent with CLIA requirements. This test may be used for clinical purposes and should not be regarded as purely investigational or for research use only. This laboratory is certified under the Clinical Laboratory Improvement Amendments of 1988 (CLIA) as qualified to perform high complexity clinical testing. Reference interval for this testing is SARS-CoV-2 Not Detected. Fact sheets for this Emergency Use Authorization assay can be found at the following links: For Healthcare Providers: https://www.fda.gov/media/885690/download For Patients: https://www.fda.gov/media/406422/download TEST LIMITATIONS Positive results are indicative of the presence of SARS-CoV-2 RNA; clinical correlation with patient history and other diagnostic information is necessary to determine patient infection status. Positive results do not rule out bacterial infection or co-infection with other viruses. The agent detected may not be the definite cause of disease. Negative results do not exclude SARS-CoV-2 infection and should not be used as the sole basis for patient management decisions. Negative results must be combined with clinical observations, patient history, and epidemiological information. Improper sample collection, transport or storage may impede the ability of the assay to detect target sequences. Inconclusive specimens are not repeated, and recollection and submission of a new sample is recommended. The performance of the TaqPath COVID-19 Combo Kit was established using nasopharyngeal swab, nasopharyngeal aspirate, and bronchoalveolar lavage (BAL) specimens. The limit of detection for the assay was determined to be 0.75copies/uL in the specimens of nasopharyngeal swab. Other specimen types may be need for further validation before testing on this system. For further details refer to the [employer] TaqPath COVID-19 Combo Kit EUA submission (https://www.Simple Admit.gov/media/754895/download). ----- Test performed by [facility], [address] [place] [address] CLIA# [id number] ?[id number] ? José Miguel Thompson M.D., Ph.D., [facility], Clinical Lumber Planer Microbiology Nasopharyngeal swab / Unknown 09/03/2020 12:13 PM EST 09/03/2020 12:14 PM EST Narrative [facility] - 09/04/2020 11:33 AM EST Performed at [facility], [address] [place] [address], [place] Lic 0695, CLIA [id number] Boni Herrera PA-C MICROBIOLOGY - NERAL ORDERABLES [address] [place] [address] documented in this encounter Visit Diagnoses Diagnosis Encounter for laboratory testing for COVID-19 virus documented in this encounter Care Teams Personnel Research Scientist Relationship Specialty Start Date End Date Pcp, No PCP - General General Medicine 06/07/18 06/19/22 Boni Ladd PA [address] [place] [address] PCP - General 06/20/22 documented as of this encounter
--- OUTSIDE RECORDS SUMMARY | 2024-10-27 07:39 | XMS_ITS | Encounter Summary ---
Author Organization [facility] Address [address] [place] [address] Care Team Providers Care Geospatial Systems Integrator Name Role Phone Boni Ladd Primary Care Provider [phone] Reason for Visit * Reason Comments Medication Refill Encounter Details Date Type Department Care Team (Late Contact Info) Description 01/29/2023 Refill [facility] Neurology [address] [address] Rhona Alonzo MD [address] [place] [id number] Difficulty sleeping Social History Tobacco Use Types [...] suspected to have Coronavirus/COVID-19? No / Unsure 01/07/2023 9:28 AM EDT documented as of this encounter Plan of Treatment Upcoming Encounters Date Type Department Care Team (Late Contact Info) Description 11/10/2024 10:45 AM EDT Office Visit MG PAIN MGMT [id number] 65 [facility] [address] [place] [address] Renae Zambrano PA-C 65 [facility] [address] [place] [address] documented as of this encounter Visit Diagnoses Diagnosis Difficulty sleeping Unspecified sleep disturbance documented in this encounter Care Teams Geospatial Systems Integrator Relationship Specialty Start Date End Date Boni Ladd PA [address] [place] [address] PCP - General 06/20/22 documented as of this encounter
--- OUTSIDE RECORDS SUMMARY | 2024-10-27 07:39 | XMS_ITS | Encounter Summary ---
Author Organization [facility] Address [address] [place] [address] Care Team Providers Care Razor Sharpener Name Role Phone Boni Ladd Primary Care Provider Encounter Details Date Type Department Care Team (Late st Contact Info) Description 04/07/2023 Scanned Document [facility] Neurology [place] [address] [phone] Rhona Alonzo MD [address] [address] Social History Tobacco Use Types Packs/Day Years [...] Office Visit [facility] PAIN [facility]MT [id number] [address] [phone] Renae Zambrano PA-C [address] [address] documented as of this encounter Visit Diagnoses Not on filedocumented in this encounter Care Teams Razor Sharpener Relationship Specialty Start Date End Date Boni Ladd PA [address] [place] [address] PCP - General 06/20/22 documented as of this encounter
--- OUTSIDE RECORDS SUMMARY | 2024-10-27 07:39 | XMS_ITS | Clinical Summary ---
Author Organization [facility] Address [address] [place] [address] Care Team Providers Care Export Packer Name Role Phone Unavailable Primary Care Provider Unavailabl e Allergies No known active allergies Medications Medication Sig Dispensed Refills Start Date End Date Status acetaminophen (TYLENOL) 650 MG CR tablet Take 1,300 mg by mouth. 0 03/01/2020 Active albuterol (ACCUNEB) 0.63 MG/3ML nebulizer soln (NICU) Inhale 0.63 mg into the lungs. 0 Active benzonatate (TESSALON) 200 MG capsule Take 1 capsule (200 mg total) by mouth 3 (three) times a day as needed. 0 09/08/2018 Active gabapentin (NEURONTIN) 300 MG capsule gabapentin 300 mg capsule 0 Active [id number] C, OTIC, (CORTISPORIN) 1 % SOLN otic solution zrdlfato-mwgvadlpg-k ydrocort 3.5 mg/mL-10,000 unit/mL-1 % ear solution 0 Active oxyCODONE (ROXICODONE) 5 MG immediate release tablet oxycodone 5 mg tablet 0 Active Active Problems Problem Noted Date Diagnosed Date Diverticulitis of colon with perforation 023 Acute diverticulitis of intestine 01/08/2023 Social History Tobacco Use Types Packs/Day Years Used Date Smoking Tobacco: Never Smokeless Tobacco: Never Tobacco Cessation:Counseling Given: Not Answered Sex and Gender Information Value Date Recorded Sex Assigned at Not on file Gender Identity Not on file Sexual Orientation Not on file Job Start Date Occupation Industry Not on file Not on file Not on file Last Filed Vital Signs Vital Sign Reading Time Taken Comments Blood Pressure 125/83 01/11/2023 7:05 AM EDT Pulse 76 01/11/2023 7:05 AM EDT Temperature 36.9 ??C (98.4 ??F) 01/11/2023 7:05 AM ED T Respiratory Rate 16 01/11/2023 7:05 AM EDT Oxygen Saturation 98% 01/11/2023 7:05 AM EDT Inhaled Oxygen Concentration - - Weight 131.5 kg (290 lb) 01/08/2023 7:39 PM EDT Height 185.4 cm (6' 1 ) 01/08/2023 7:39 PM EDT Body Mass Index 38.26 01/08/2023 7:39 PM EDT Plan of Treatment Health Maintenance Due Date Last Done Comments Hepatitis B Vaccines (1 of 3 - 3-dose series) 1977 Hepatitis C Screening 1977 COVID-19 Vaccine (#1) 1977 Depression Screening 1989 BMI Counseling 1995 Preventative Health Evaluation 1995 Colon Cancer Screening (Colonoscopy) 2022 Influenza Vaccine (#1) 2024 DTap / Tdap / Td (3 - Td or Tdap) 06/10/2032 06/10/2022, 01/11/2013, 11/12/2006 Pneumococcal Vaccine Aged Out No long er eligible based on patient's age to complete this topic RSV Ped < 20 months Aged Out No longe r eligible based on patient's age to complete this topic Advance Directives For more information, please contact: [phone] Latest Code Status on File Code Status Date Activated Date Inactivated Comments Full Code 01/08/2023 11:18 PM 01/11/2023 4:48 PM
--- OUTSIDE RECORDS SUMMARY | 2024-10-27 07:39 | XMS_ITS | Encounter Summary ---
Author Organization [facility] Address [address] [place] [address] Care Team Providers Care Director Blood Bank Name Role Phone Boni Ladd Primary Care Provider [phone] Reason for Visit * Reason Comments Medication Refill Encounter Details Date Type Department Care Team (Late Contact Info) Description 03/16/2023 Refill [facility] Neurology [address] [phone] Rhona Alonzo MD [address] [place] [phone] Difficulty sleeping Social History Tobacco Use Types [...] Office Visit MG PAIN MGMT [id number] 65 [facility] [address] [place] [address] Renae Zambrano PA-C 65 [facility] [address] [place] [address] documented as of this encounter Visit Diagnoses Diagnosis Difficulty sleeping Unspecified sleep disturbance documented in this encounter Care Teams Director Blood Bank Relationship Specialty Start Date End Date Boni Ladd PA [address] [place] [phone] PCP - General 06/20/22 documented as of this encounter
--- OUTSIDE RECORDS SUMMARY | 2024-10-27 07:39 | XMS_ITS | Data Portability ---
Author Organization [facility] Address [address] [place] [address] Assessment Encounter Date Assessment Date Assessment LastModified [...] and this will be scheduled for him. [email or web address] Not available 05/05/2018 16:11:09 06/30/2018 06/30/2018 Mr. De Guzman is improving. He will continue to advance his level activity and followup with me in 4 weeks. Given the very physical nature of his work, I do not recommend that he return until I have seen him in 4 weeks. [email or web address] Not available 06/30/2018 14:47:01 Plan of Treatment Reminders Order Date Submit Date Provider Last Modified By Organization Details Last Modified Time Details Appointments None recorded. Lab None recorded. Referral None recorded. Procedures None recorded. Surgeries lumbar discectomy (SURG) 2017 018 [email or web address] Not available 8 09:56:28 Imaging MRI, knee, w/o contrast 2018 019 [email or web address] [facility] ([facility]), [address], [place], [address], 9 10:27:21 Medication Orders None recorded. Patient TargetsNo targets recorded. Patient Instructions Encounter Date Encounter Id Patient Instructions Last Modified By Organization Details Last Modified Time 07/19/2018 [id number] Mr. De Guzman is recovering nicely from his discectomy. He has been referred for physical therapy. He would like to return to work. He has been return to work at light duty as of July 24. He will follow up in 8 weeks. [email or web address] Not available 07/21/2018 05:56:25 05/17/2019 [id number] He presents toda for 2 problems. He [...] He did well with physical therapy and [id number] options. He felt something shift in his [...] treatment options. He agrees with the plan. [email or web address] Not available 05/17/2019 18:19:33 Reason for Referral [...] Dictat ed: 2017 1:02 PM Report ID: [id number] Report signed in supervisor shed workers al system at 2017 13:02 Report ed By: Edin rouse M.D. (JULITO) Signed By: Edin rouse M.D. (JULITO) [email or web address] [facility]) [address] [facility], [place], [address], 06/15/2018 13:54:36 06/14/20 19 05/17/2019 XR, knee, [...] Dictat ed: 2018 3:11 PM Report ID: [id number] Report signed in supervisor shed workers al system at 019 15:11 Report ed By: Brandon slater M.D. (MARED ) Signed By: Brandon slater M.D. (MARED ) [email or web address] [facility] (Im[facility]) [address] [place], [address], 06/14/2019 10:30:51 06/14/20 19 05/17/2019 XR, foot, [...] tendon at its insert ion on the power superintendent ior calcan eus. IMPRES JULIO: No fractu re or destru ctive bone lesion s left foot. Dorsal osteop hytes on the navicu lar bone. Calcan eal spur. Dystro phic calcif icatio n in the distal left Achill is tendon likely relate d to old trauma . Dictat ed: 2018 3:13 PM Report ID: [id number] Report signed in supervisor shed workers al system at 019 15:13 Report ed By: Brandon slater M.D. (MARED ) Signed By: Brandon slater M.D. ([facility] ) [email or web address] [facility] (Im[facility]) [address] [place], [address], 06/14/2019 10:30:51 06/14/20 19 05/17/2019 XR, thora [...] Dictat ed: 2018 3:14 PM Report ID: [id number] Report signed in supervisor shed workers al system at 019 15:14 Report ed By: Brandon slater M.D. (MAR ) Signed By: Brandon slater M.D. ([facility] ) [facility]) [address] [facility], [place], [address], 06/14/2019 10:30:52 06/16/20 19 06/15/2019 MRI, knee, w/o contr ast [facility] [place] [facility] Access ion Number : [id number] Patien t Name : Florentino De Guzman Record Number : [id number] Date of : 1974 Date of Exam : 2018 Referr ing Physic verenice : LEANA HAM rts [address] [facility] [address] [place] [address] Exam : MR - KNEE (C-) CPT 65902 - LEFT Room Descri ption : Socorro Siem Espr 2 1.5 Techni que : [...] Superi or and inferi or fascic les power superintendent ior horn latera l menisc us: Intact [...] CASAS MD (Signa ture on file) [address] [facility] ([facility]) [address] [place], [address], 06/18/2019 09:55:51 06/16/20 19 06/15/2019 MRI, knee, w/o contr ast No observ ation record ed. [email or web address] [place] [address] [facility] At [facility] [address] [place], [address], 06/18/2019 09:55:51 Result Notes None recorded. Problems No Known Problems Procedures Surgical History Date Name Laterality Status Provider Name and Address Organization Details Recorded Time 8 Back Surgery completed Xiomara Jeanette [facility] 06/30/2018 14:25:[address] [facility] Lumbar Epidural Injection completed CRYS COOPER MD [address] [place] [address],[address], [place], [address], [facility] 05/24/2018 14:04:46 Tonsillectomy/ Adenoidectomy completed Latricia Walker [facility] 05/05/2018 15:46:59 Imaging Results Imaging Date Name Status LastModified by Organization Details LastModified Time 03/18/2018 MRI, lumbar spine, w/o contrast completed [email or web address] Information not available 05/05/2018 14:57:34 06/15/2018 XR, entire spine, 1 view completed [email or web address] [facility] (Im[facility]) [address] [place], [address], 06/15/2018 13:54:36 05/17/2019 XR, knee, 3 view completed [address] Radiology (Imaging) [address] [place] [address], [address], 06/14/2019 10:30:51 05/17/2019 XR, foot, 3 or more view completed [address] Rad[facility] (Imaging) [address] [place] [address], [address], 06/14/2019 10:30:51 05/17/2019 XR, thoracolumbar spine, 2 or [address] view [address] [facility] (Imaging) [address] [place] [address], [address], 06/14/2019 10:30:52 06/15/2019 MRI, knee, w/o contrast completed [address] [facility] ([facility]) [address] [place], [address], 06/18/2019 09:55:51 06/15/2019 MRI, knee, w/o contrast completed [address] [facility] - [facility]ri [address] [place] [address], [address], 06/18/2019 09:55:51 Procedure Notes None recorded. Medical [...] Updated DateTime 05/05/2018 185.42 cm 36.3 kg/m2 909354.9 g 97.8 [degF] Latricia Walker [facility] 05/05/2018 15:45:36 Date Recorded Pain severity - 0-10 verbal numeric rating [Score] - Reported Provider Name and Address Organization Details Last Updated DateTime 05/05/2018 10 Not Available formerly [facility] 8 05:59:33 Date Recorded Body height Body mass index (BMI) Body weight Body temperature Provider Name and Address Organization Details Last Updated DateTime 06/30/2018 185.42 cm 36.3 kg/m2 818375.9 g 99.2 [degF] Xiomara Reid [facility] 06/30/2018 14:25:17 Date Recorded Pain severity - 0-10 verbal numeric rating [Score] - Reported Provider Name and Address Organization Details Last Updated DateTime 06/30/2018 6 Not Available formerly [facility] 8 05:59:43 Date Recorded Body height Body mass index (BMI) Body weight Body temperature Provider Name and Address Organization Details Last Updated DateTime 07/19/2018 185.42 cm 36.3 kg/m2 588094.9 g 97.7 [degF] Obie Vasquez [facility] 07/19/2018 13:16:32 Date Recorded Pain severity - 0-10 verbal numeric rating [Score] - Reported Provider Name and Address Organization Details Last Updated DateTime 07/19/2018 6 Not Available formerly [facility] 8 05:36:28 Date Recorded Body height Body mass index (BMI) Body weight Pain severity - 0-10 verbal numeric rating [Score] - Reported Provider Name and Address Organization Details Last Updated DateTime 05/17/2019 185.42 cm 36.3 kg/m2 284280.9 g 5 Nicky Patel [facility] 05/17/2019 13:44:43 Date Recorded Body temperature Provider Name a nd Address Organization Details Last Updated DateTime 05/17/2019 99.1 [degF] Yarely Chand [facility] 05/17/2019 14:04:55 Social History Question Answer Notes LastModified by Organizat ion Details LastModified Time Tobacco Smoking Status Never Smoker Latricia Walker whit [facility] 05/05/2018 15:46:48 What Is Your Level Of Alcohol Consumption? Moderate [email or web address] Information not available 05/05/2018 What Was The Date Of Your Most Recent Tobacco Screening? 07/19/2018 Information n ot available 03/16/2019 Sex: Unknown Functional Status None recorded. Mental Status None recorded. Family History Relationship Description Onset Age of this Age Resolved Age Notes LastModified by Organization Details LastModified Time Father No current problems or disability [email or web address] Not available 05/05 15:46:43 Mother No current problems or disability [email or web address] Not available 05/05 15:46:43 Medical History Condition Response Coronary Artery Disease N Gout N Lung Disease N Depression N Pacemaker N Hearing Impairment N Anesthesia Complications N Headaches/Migraines N Deep Vein Thrombosis N Anxiety Disorder N Arthritis N Blood Clot N Acid Reflux (GERD) N Cancer N Stroke N Organ Transplant N Rheumatoid Arthritis N Fibromyalgia N Kidney Disease N Dyslipidemia N Artificial Joints N Thyroid Problems N Anemia N Back Pain N Heart Attack ([place]) N Diabetes N Bleeding Disorder N Seizures/Epilepsy N Cardiac Stent N Tuberculosis N AIDS/HIV N Inflammatory Bowel Disease N Substance Abuse N Peripheral Vascular Disease N Asthma/COPD N Wears Glasses/Contacts N Hepatitis N Heart Disease N Pulmonary Embolism N Hypertension N Stomach Ulcer N Osteoporosis N Past Encounters Encounter ID Performer Location Encounter Start Date Encounter Closed Date Diagnosis/Indication Diagnosis SNOMED-CT Code Diagnosis ICD10 Code Diagnosis Note [id number] ANNE WEINSTEIN MD [address] [address] 05/05/2018 14:43:23 05/05/2018 16:43:29 Herniation of lumbar intervertebral disc with sciatica 8623824588 32904 M51.16 [id number] CRYS COOPER MD [address] [place] [address] 05/24/2018 13:32:31 05/24/2018 14:24:55 Lumbar radiculopathy [id number] M54.16 [id number] ANNE WEINSTEIN MD [address] [place] [address] 06/30/2018 13:43:33 06/30/2018 14:47:26 [id number] YANELY LANGLEY [address] [place] [address] 07/19/2018 13:11:17 07/22/2018 09:27:56 Aftercare [id number] Z47.89 Mr. De Guzman is recovering nicely from his discectomy . He has been referred for physical therapy. He would like to return to work. He has been return to work at light duty as of July 24. He will follow up in 8 weeks.Mr. De Guzman is recovering nicely from his discectomy . He has been referred for physical therapy. He would like to return to work. He has been return to work at light duty as of July 24. He will follow up in 8 weeks. [id number] YANELY FONTAINE [employer] [address] [facility],[address] [place] [address] 05/17/2019 13:32:08 05/19/2019 14:33:09 Postoperative care [id number] Z48.89 Tear of la teral meniscus of knee [id number] S83.281A Health Concerns Section Related Observation LastModified by Organization Detai ls LastModified Time None Recorded Concern Status LastModified by Organization Details LastModified Time None Recorded Advance Directives Directive None Recorded Payers Encounter Date Sequence Insurance Name Policy Number Policy [place] Covered Member ID [place] Member ID Guarantor Name 05/05/2018 1 [employer] (PP[employer]) [id number] Florentino De Guzman [id number] Florentino De Guzman 05/24/2018 1 [employer]) [id number] Florentino De Guzman [id number] Florentino De Guzman 06/30/2018 1 [employer] (PP[employer]) [id number] Florentino De Guzman [id number] Florentino De Guzman 07/19/2018 1 [facility] (O) [id number] Florentino De Guzman [id number] Florentino De Guzman 05/17/2019 1 [facility] ([facility] [id number] Florentino De Guzman [id number] Florentino De Guzman Notes Date Note Type [...] on light duty. He works at the [employer]. He had transient left leg pain but this has resolved. ANNE WEINSTEIN MD [address] [place] [address],[address], [address], [facility] 05/05/2018 16:49:42 06/30/2018 text/html He is now 2 week s out from his surgery. He reports decreasing back and leg pain. He's had no fevers or chills. ANNE WEINSTEIN MD [address] [place] [address],[address] [facility], [place], [address], [facility] 06/30/2018 14:47:09 07/19/2018 text/html [...] for prolonged periods of time, YANELY LANGLEY [address] [place] [address],[address] [facility], [place], [address], [facility] 07/21/2018 05:56:47 05/17/2019 text/html [...] dysfunction. He denies any new trauma.Knee PainReported bypatient.Notes:Patipadma nt secondary complaint of left knee pain. This was previously a work-related injury. The injury occurred 4 months ago. He was evaluated at a hospital in [place] and diagnosed with a sprain. He was [...] to discuss further options. YANELY FONTAINE [address] [facility],[address], [place], [address], [place] [facility] 05/17/2019 18:20:18
--- OUTSIDE RECORDS SUMMARY | 2024-10-27 07:39 | XMS_ITS | Encounter Summary ---
Author Organization [facility] Address [address] [place] [address] Care Team Providers Care Goldsmith Apprentice Name Role Phone Boni Ladd Primary Care Provider [phone] Reason for Visit * Reason Comments Medication Refill Encounter Details Date Type Department Care Team (Late Contact Info) Description 03/12/2023 Refill [facility] Neurology [address] [address] Rhona Alonzo MD [address] [place] [phone] Difficulty sleeping Social History Tobacco Use Types [...] MG PAIN MGMT [id number] 65 [facility] [address] [place] [address] Renae Zambrano PA-C 65 [facility] [address] [place] [address] documented as of this encounter Visit Diagnoses Diagnosis Difficulty sleeping Unspecified sleep disturbance documented in this encounter Care Teams Goldsmith Apprentice Relationship Specialty Start Date End Date Boni Ladd PA [address] [place] [address] PCP - General 06/20/22 documented as of this encounter
--- OUTSIDE RECORDS SUMMARY | 2024-10-27 07:39 | XMS_ITS | Clinical Summary ---
Author Organization [address] [facility] Address [address] [place] [address] Phone Care Team Providers Care Revenue Cycle Consultant Name Role Phone Shanna Mckeon MD Primary Care Prov ider Allergies No known active allergies Medications citalopram (CeleXA) 10 mg tablet 11/06/2023 Active cloNIDine (CATAPRES) 0.1 mg tablet 11/10/2023 Active cyclobenzaprine (FLEXERIL) 10 mg tablet Take 1 Tablet by mouth 3 times daily as needed for Muscle spasms for up to 90 days. 05/12/2024 Active divalproex (DEPAKOTE) [address] tablet Take 1 Tablet by mouth. 05/15/2023 Active fexofenadine (PABLO) 180 mg tablet Take 1 Tab by mouth daily. 07/10/2014 Active fluticasone propionate (FLONASE) 50 mcg/actuation nasal spray INSTILL 2 SPRAYS IN EACH NOSTRIL ONCE DAILY 08/10/2014 Active hydrOXYzine HCL (ATARAX) 50 mg tablet Take 1 Tablet by mouth at bedtime. 11/21/2022 Active ibuprofen (ADVIL,MOTRIN) 800 mg tablet Take 1 Tab by mouth every 8 hours as needed for Pain for up to 30 days. 05/24/2018 Active lisinopriL (PRINIVIL,ZESTR IL) 30 mg tablet Take 1 Tablet by mouth daily. 05/12/2024 Active neomycin (MYCIFRADIN) 500 mg tablet Take 2 Tablets by mouth 4 times daily. Take at 8 am, noon, 4 pm and 8 pm the day before surgery 05/04/2023 Active prazosin (MINIPRESS) 2 mg capsule Take 2 Capsules by mouth at bedtime. 04/21/2023 Active risperiDONE (RisperDAL) 0.25 mg tablet Take 1 Tablet by mouth. Active tadalafiL (CIALIS) 5 mg tablet Take 1 Tablet by mouth daily for 30 days. 01/02/2023 Active traZODone (DESYREL) 50 mg tablet Take 1 Tablet by mouth at bedtime. 01/07/2023 Active venlafaxine XR (EFFEXOR-XR) 150 mg 24 hr capsule Take 1 Capsule by mouth daily for 360 days. 11/27/2022 Active Active Problems Problem Noted Date Diagnosed Date Diverticulosis 01/29/2023 Primary hypertension 01/29/2023 Reactive depression 01/29/2023 Post concussion syndrome 01/02/2023 PTSD (post-traumatic stress disorder) 01/02/2023 Elevated blood-pressure read ing, without diagnosis of hypertension 05/21/2021 Fatty liver 11/11/2011 Obesity 11/05/2010 Asthma 08/28/2008 Allergic rhinitis 11/12/2006 Backache 11/12/2006 Overview (06/16/2024): IMO update Wheezing 11/12/2006 Immunizations Name Administration Dates Next Due Td Tetanus diptheria (Tdvax) 7yo and older 11/12 Tdap Tetanus diptheria acell ular pertussis (Boostrix; Adacel) 7yo and older 01/11/2013 Surgical History Surgery Date Site/Laterality Comments TONSILLECTOMY PROCEDURE: HISTORICAL TONSILLECTOMY; COMMENT: adenoidectomy OTHER SURGICAL HISTORY 2017 N/A PROCEDURE: DISKECTOMY LUMBAR SINGLE SP Medical History Medical History Date Comments Hypertension DX:Hypertension Obesity 11/05/2010 DX:Obesity Fatty liver 11/11/2011 DX:Fatty liver Family History Medical History Relation Name Comments Diabetes Father Other: Other Father Other: agent orange Father Diabetes Maternal Grandfather Hypertension Maternal Grandmother Hypertension Mother Other: atherosclerosis Mother Other: Other Other He denies any f amily history of cardiac disease, DM, thyroid,cancer Colon cancer Paternal Grandmother Other cancer Paternal Grandmother possibl y renal Relation Name Status Comments Father Maternal Grandfather Maternal Grandmother Mother Other Paternal Grandmother Social History Tobacco Use Types Packs/Day Years Used Date Smoking Tobacco: Never Smokeless Tobacco: Never Tobacco Cessation:Counseling Given: Not Answered Alcohol Use Standard Drinks/Week Comments Yes 0 (1 standard drink = 0.6 oz pur e alcohol) Sex and Gender Information Value Date Recorded Sex Assigned at Not on file Legal Sex Male 3:17 PM EST Gender Identity Not on file Sexual Orientation Not on file Obstetrics History Last Filed Vital Signs Vital Sign Reading Time Taken Comments Blood Pressure 140/86 07/26/2024 1:51 PM EST Pulse 82 07/26/2024 1:51 PM EST Temperature 36.2 ??C (97.1 ??F) 07/26/2024 1:51 PM ES T Respiratory Rate - - Oxygen Saturation - - Inhaled Oxygen Concentration - - Weight 138 kg (305 lb 3.2 oz) 07/26/2024 1:51 PM EST Height 185.4 cm (6' 1 ) 07/26/2024 1:51 PM EST Body Mass Index 40.27 07/26/2024 1:51 PM EST Plan of Treatment Upcoming Encounters Date Type Department Care Team (Late st Contact Info) Description 11/09/2024 9:30 AM EDT Office Visit Adult Medicine [facility] [address] [place] [address] Boni Ladd PA [address] [place] [address] Health Maintenance Due Date Last Done Comments Hepatitis B Vaccines (1 of 3 - 19+ 3-dose series) 01/02/1996 Pneumococcal Vaccine: Pediatrics (0 to 5 Years) and At-Risk Patients (6 to 64 Years) (1 of 2 - PCV) 01/02/1996 Cholesterol Screening (Lipid Panel) 07/23/2022 08/10/2014 Colorectal Cancer Screening: Colonoscopy 07/23/2022 Depression Screening 07/23/2022 HIV Screening 07/23/2022 Hepatitis C Screening 07/23/2022 Social Influencers of Health Screening 07/23/2022 Hypertension/CHF/CAD Annual BMP Blood Test 01/30/2024 01/29/2023, 01/11/2023, 01/08/2023 COVID-19 Vaccine (3 - 2023-2 5 season) 2024 10/14/2020, 09/13/2020 Influenza Vaccine (#1) 2024 DTaP,Tdap,and Td Vaccines (4 - Td or Tdap) 06/10/2032 06/10/2022, 01/11/2013, 11/12/2006 HIB Vaccines Aged Out No longer eligi ble based on patient's age to complete this topic HPV Vaccines Aged Out No longer eligi ble based on patient's age to complete this topic Hepatitis A Vaccines Aged Out No long er eligible based on patient's age to complete this topic IPV Vaccines Aged Out No longer eligi ble based on patient's age to complete this topic MMR Vaccines Aged Out No longer eligi ble based on patient's age to complete this topic Meningococcal ACWY Vaccine Aged Out N o longer eligible based on patient's age to complete this topic Meningococcal B Vacine Aged Out No lo nger eligible based on patient's age to complete this topic RSV Immunization Patients Under 20 months Aged Out No longer eligible b ased on patient's age to complete this topic Varicella Vaccines Aged Out No longer eligible based on patient's age to complete this topic Procedures Procedure Name Priority Date/Time Associated Diagnosis Comments ANNUAL BMP BLOOD TEST Routine 01/29/2023 LIPID PANEL Routine 08/10/2014 from Last 3 Months or Most Recently Relevant to Health Maintenance Results * Annual BMP Blood Test (01/29/2023) [facility] Annual BMP Blood Test Abstracted us Historical Provider MD HEALTH MAINTENANCE Final Result * (ABNORMAL) Lipid panel (08/10/2014) [facility] LDL/HDL Ratio 5(A) 0 - 4 Triglycerides 207(A) 0 - 150 mg/dL Cholesterol 259(A) 0 - 200 mg/dL HDL 56 >=40 mg/dL LDL Cholesterol 162(A) 0 - 100 mg/dL Blood Venous blood specimen / Unknown us Historical Provider LAB BLOOD ORDERABLES Antonina l Result from Last 3 Months or Most Recently Relevant to Health Maintenance Insurance [facility] Care Teams Revenue Cycle Consultant Relationship Specialty Start Date End Date Shanna Mckeon MD [address] [place] [address] PCP - General Internal Medicine 07/26/24
== END 2024-10-27 16:20 | disposition home or self-care (01) ==
PROVIDERS: Visit Provider Nurse Practitioner Family
DX: F07.81 Postconcussional syndrome (principal); G43.709 Chronic migraine without aura, not intractable, without status migrainosus; M54.2 Cervicalgia; F43.10 Post-traumatic stress disorder, unspecified; G47.33 Obstructive sleep apnea (adult) (pediatric)
CPT/HCPCS: 99214